=== PATIENT | female | born 1990 | race Caucasian/White ===

== ENCOUNTER 2018-05-31 01:03 | Emergency (ER) | payer SELFPAY ==
--- NOTE | 2018-05-31 01:10 | PDOC ---
History of Present Illness - General Chief Complaint: Eye Problem Stated Complaint: BLOOD FROM RIGHT EYELID Time Seen by Provider: 05/31/18 01:06 History Source: Patient Exam Limitations: No Limitations - History of Present Illness Initial Comments: 05/31/18 01:06 This is a 28-year-old female who comes in complaining of what appears to be a probable infected sty of the lower eyelid area on the right. Patient was doing a lot soaks when it popped and there was some blood by the type patient got here in the urine. And there was no other complaints. Patient has an appointment with an eye doctor in the morning. Allergies: as per nursing notes Past Medical History: none Social history: Lives with family. No smoking. No alcohol. No illicit drugs. Surgical history: None General: No fevers or chills, no weakness, no weight loss HEENT: No change in vision. No sore throat,. No ear pain, right eye with sty CardioVascular: no chest discomfort. No shortness of breath Respiratory:No cough, or wheezing. Gastrointestinal: no nausea, vomiting, diarrhea or constipation, No rectal bleeding Genitourinary: No dysuria, hematuria, or frequency Musculoskeletal: No joint or muscle pain or swelling Neurologic: No headache, vertigo, dizziness or loss of consciousness Psychiatric: nor depression Skin: No rashes or easy bruising Endocrine: no increased thirst or abnormal weight change Allergic: no skin or latex allergy All other systems reviewed and normal GENERAL: The patient is awake, alert, and fully oriented, in no acute distress. HEAD: Normal with no signs of trauma. EYES: Pupils equal, round and reactive to light, extraocular movements intact, sclera anicteric, conjunctiva clear. There is what appears to be a probable permanence of a stye so small amount of dried blood. There is no active bleeding at this time. EXTREMITIES:atraumatic, Normal range of motion, no edema. NEUROLOGICAL: Normal speech, normal gait. PSYCH: Normal mood, normal affect. SKIN: Warm, Dry, normal turgor, no rashes or lesions noted. Assessment and plan: This is a 28-year-old female with a stye in the right lower eyelid area that popped and there was some bleeding. Patient became concerned because bleeding came in for evaluation. Patient was reassured that this is not unusual and that she should keep her appointment in the morning with her literacy specialist. Past History - Past Medical History Allergies/Adverse Reactions: Allergies Allergy/AdvReac Type Severity Reaction Status Date / Time No Known Allergies Allergy Verified 05/31/18 01:04 Home Medications: Ambulatory Orders Alprazolam [Xanax] 0.25 mg PO DAILY 05/26/14 Cyclobenzaprine HCl [Flexeril] 5 mg PO TID PRN #10 tablet 05/26/14 Lurasidone HCl [Latuda] 1 tab PO DAILY 05/26/14 Naproxen [Naprosyn -] 500 mg PO BID PRN #40 tablet 05/26/14 Psychiatric Problems: Yes - Immunization History Immunization Up to Date: Yes - Suicide/Smoking/Psychosocial Hx Smoking History: Former smoker Have you smoked in the past 12 months: No Number of Cigarettes Smoked Daily: 0 Cigars Per Day: 0 'Breaking Loose' booklet given: 07/22/13 Hx Alcohol Use: Yes (OCCAS.) Substance Use Type: Marijuana *DC/Admit/Observation/Transfer Diagnosis at time of Disposition: Hordeolum externum right lower eyelid - Discharge Dispostion Disposition: HOME Condition at time of disposition: Improved - Referrals - Patient Instructions Additional Instructions: Do not do anything more to the area tonight go home and get some sleep. Return to the emergency department immediately with ANY new, persistent or worsening symptoms. Continue any medications as previously prescribed by your physician. Keep your appointment with your doctor in the morning Thank you for coming to the Emergency Department today for your care. It was a pleasure to see you today. Please note that your evaluation is INCOMPLETE until you follow-up with your doctor. - Post Discharge Activity
[2018-05-31 01:20] VITALS: TEMP 98.6; BMI 19.5
[2018-05-31 01:31] VITALS: BP 117/76; PULSE 99
== END 2018-05-31 01:31 | disposition home or self-care (01) ==
LOC: FER 01:03
DX: H00.012 Hordeolum externum right lower eyelid (principal); Z87.891 Personal history of nicotine dependence; F99 Mental disorder, not otherwise specified
CPT/HCPCS: 99281-25

== ENCOUNTER 2018-07-05 17:00 | Emergency (ER) | payer OTHER, BC ==
[2018-07-05 18:09] VITALS: BP 124/98; PULSE 98; TEMP 98; BMI 19.2
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
== END 2018-07-05 18:12 | disposition home or self-care (01) ==
LOC: FER 17:00
DX: M79.604 Pain in right leg (principal); Z87.891 Personal history of nicotine dependence; J45.909 Unspecified asthma, uncomplicated; F99 Mental disorder, not otherwise specified; F41.8 Other specified anxiety disorders; F50.9 Eating disorder, unspecified
CPT/HCPCS: 99282-25

== ENCOUNTER 2018-11-15 01:21 | Emergency (ER) | payer OTHER, BC ==
[2018-11-15 01:38] VITALS: BP 117/81; PULSE 98; TEMP 98.1; BMI 18.3
--- NOTE | 2018-11-15 01:48 | PDOC ---
History of Present Illness - General Chief Complaint: Allergic Reaction Stated Complaint: ALLERGIC REACTION Time Seen by Provider: 11/15/18 01:35 History Source: Patient Exam Limitations: No Limitations - History of Present Illness Initial Comments: 11/15/18 01:41 This is a 28-year-old female who comes in complaining she couldn't she's having an ALLERGIC reaction. Patient also does appear to be anxious very anxious and is complaining of some palpitations and shaking. Patient sustained a mosquito bite at her work that was bothering her and then had her hair done and think she had an ALLERGIC reaction to the bleach that they use in her hair. Patient took Benadryl 2 and began to feel panicky so came in for evaluation. Here in the emergency room patient does appear to be anxious but is otherwise without complaints. Allergies: as per nursing notes Past Medical History: none Social history: Lives with family. No smoking. No alcohol. No illicit drugs. Surgical history: None General: No fevers or chills, no weakness, no weight loss HEENT: No change in vision. No sore throat,. No ear pain CardioVascular: no chest discomfort. No shortness of breath Respiratory:No cough, or wheezing. Gastrointestinal: no nausea, vomiting, diarrhea or constipation, No rectal bleeding Genitourinary: No dysuria, hematuria, or frequency Musculoskeletal: No joint or muscle pain or swelling Neurologic: No headache, vertigo, dizziness or loss of consciousness Psychiatric: nor depression Skin: No rashes or easy bruising Endocrine: no increased thirst or abnormal weight change Allergic: ALLERGIC reaction as per history of present illness All other systems reviewed and normal GENERAL: The patient is awake, alert, and fully oriented, in no acute distress. HEAD: Normal with no signs of trauma. There is some mild erythema of the area around the scalp and patient said that it is itching her. EYES: Pupils equal, round and reactive to light, extraocular movements intact, sclera anicteric, conjunctiva clear. EXTREMITIES:atraumatic, Normal range of motion, no edema. Left lower extremity posterior knee there is an area that does appear to be a mosquito bite it is red, however it is not hot swollen or infected appearing. NEUROLOGICAL: Normal speech, normal gait. PSYCH: Normal mood, normal affect. SKIN: Warm, Dry, normal turgor, no rashes or lesions noted. Assessment and plan: This is a 28-year-old female with a mild reaction to what probably was hair chemicals. The patient was reassured that there is no need to be concerned and I suggested that she stop the Benadryl as it can be making her feel more anxious. I suggested patient take Claritin or Cesia tomorrow morning. Patient discharged will follow-up with her primary care doctor Past History - Past Medical History Allergies/Adverse Reactions: Allergies Allergy/AdvReac Type Severity Reaction Status Date / Time No Known Allergies Allergy Verified 05/31/18 01:04 Home Medications: Ambulatory Orders Alprazolam [Xanax] 2 mg PO HS 07/05/18 Gabapentin [Neurontin] 300 mg PO DAILY 07/05/18 Lamictal PO BID 07/05/18 Norethindrone-E.estradiol-Iron [Lo Loestrin Fe 1-10 Tablet] 1 tab PO DAILY 07/05 Seroquel 300 mg PO HS 07/05/18 Wellbutrin - 300 mg PO DAILY 07/05/18 Valacyclovir HCl [Valtrex -] 1,000 mg PO DAILY 11/15/18 Asthma: Yes COPD: No Psychiatric Problems: Yes - Immunization History Immunization Up to Date: Yes - Psycho Social/Smoking Cessation Hx Smoking History: Unknown if ever smoked Have you smoked in the past 12 months: No Number of Cigarettes Smoked Daily: 0 Cigars Per Day: 0 Information on smoking cessation initiated: No 'Breaking Loose' booklet given: 07/22/13 Hx Alcohol Use: No Drug/Substance Use Hx: No Substance Use Type: Marijuana *Physical Exam - Vital Signs Last Vital Signs Temp Pulse Resp BP Pulse Ox 98.1 F 98 H 14 117/81 100 11/15/18 01:35 11/15/18 01:35 11/15/18 01:35 11/15/18 01:35 11/15/18 01:35 Discharge - Discharge Information Problems reviewed: Yes Clinical Impression/Diagnosis: Contact dermatitis Qualifiers: Contact dermatitis type: irritant Contact dermatitis trigger: cosmetics Qualified Code(s): L24.3 - Irritant contact dermatitis due to cosmetics Condition: Good Disposition: HOME - Admission No - Follow up/Referral Referrals: Davy Ferrara MD [Primary Care Provider] - - Patient Discharge Instructions Additional Instructions: Stop the Benadryl and replace it with either Claritin or Cesia in the morning. You can use some hydrocortisone cream on the itchy areas around her scalp and behind her knee. Return to the emergency department immediately with ANY new, persistent or worsening symptoms. Continue any medications as previously prescribed by your physician. You should follow up with your primary doctor as soon as possible regarding today's emergency department visit. . Please make sure your doctor reviews the results of your emergency evaluation. Thank you for coming to the Emergency Department today for your care. It was a pleasure to see you today. Please note that your evaluation is INCOMPLETE until you follow-up with your doctor. - Post Discharge Activity
== END 2018-11-15 02:00 | disposition home or self-care (01) ==
LOC: FER 01:21
DX: L24.3 Irritant contact dermatitis due to cosmetics (principal); J45.909 Unspecified asthma, uncomplicated; F99 Mental disorder, not otherwise specified
CPT/HCPCS: 99282-25

== ENCOUNTER 2020-09-30 16:54 | Emergency (ER) | payer OTHER ==
[2020-09-30 17:25] VITALS: BP 118/84; PULSE 85; TEMP 98.2; BMI 16.2
[2020-09-30] MEDS ORDERED: ONDANSETRON 4 MG/2 ML VIAL IVPUSH ONE (17:55)
[2020-09-30] MEDS ORDERED: PANTOPRAZOLE SODIUM 40 MG in SODIUM CHLORIDE 100 ML IVPB ONE (17:55)
[2020-09-30] MEDS ORDERED: SODIUM CHLORIDE 1,000 ML IV STA (17:55)
[2020-09-30] MEDS ORDERED: MAG HYDROX/AL HYDROX/SIMETH 30 ML UNIT-DOSE CUP PO ONE (17:55)
[2020-09-30] MEDS ORDERED: ONDANSETRON 4 MG/2 ML VIAL ONE (18:02)
[2020-09-30] MEDS ORDERED: MAG HYDROX/AL HYDROX/SIMETH 30 ML UNIT-DOSE CUP ONE (18:02)
[2020-09-30] MEDS ORDERED: PANTOPRAZOLE SODIUM 40 MG VIAL ONE (18:02)
[2020-09-30 18:44] LABS: HCG,QUALITATIVE URINE Negative
[2020-09-30 18:50] LABS: EOS % 3.3 % (0-4.5); HEMATOCRIT 39.6 % (32.4-45.2); HEMOGLOBIN 13.1 GM/dl (10.7-15.3); LYMPH % 41.3 % (8-40); MCH 30.5 pg (25.7-33.7); MEAN CELL VOLUME 92.4 fl (80-96); MONO % 5.3 % (3.8-10.2); NEUT % 49.1 % (42.8-82.8); PLATELET COUNT 342 10^3/uL (134-434); RBC 4.29 M/mm3 (3.60-5.2); RDW 11.5 % (11.6-15.6); WHITE BLOOD COUNT 4.6 K/mm3 (4.0-10.8)
[2020-09-30 19:29] LABS: ALBUMIN 4.5 g/dl (3.4-5.0); BILIRUBIN,TOTAL 0.6 mg/dl (0.2-1); CALCIUM 9.8 mg/dl (8.5-10); CREATININE 0.9 mg/dl (0.55-1.3); TOT PROT 7.2 g/dl (6.4-8.2)
[2020-09-30 20:40] LABS: HIV INTERPRETATION NEGATIVE (NEGATIVE)
== END 2020-09-30 21:43 | disposition home or self-care (01) ==
LOC: FER 16:54
PROC: 3E033GC Introduction of Other Therapeutic Substance into Peripheral Vein, Percutaneous Approach (ICD-10-PCS; principal; 2020-09-30)
PROC: 3E033GC Introduction of Other Therapeutic Substance into Peripheral Vein, Percutaneous Approach (ICD-10-PCS; 2020-09-30)
PROC: 3E0337Z Introduction of Electrolytic and Water Balance Substance into Peripheral Vein, Percutaneous Approach (ICD-10-PCS; 2020-09-30)
DX: B37.3 Candidiasis of vulva and vagina (principal); K29.00 Acute gastritis without bleeding
CPT/HCPCS: 36415; 71045-TC-FY; 80053; 81003; 83690; 84703; 85025; 86780; 87086; 87389; 87491; 87591; 99284-25

== ENCOUNTER 2023-07-24 17:46 | Emergency (ER) | payer OTHER ==
[2023-07-24 18:20] VITALS: BP 114/84; PULSE 87; RESP 20; TEMP 98.2; BMI 16.8
== END 2023-07-24 18:44 | disposition home or self-care (01) ==
LOC: FER 17:46
DX: L08.9 Local infection of the skin and subcutaneous tissue, unspecified (principal)
CPT/HCPCS: 99283-25

== ENCOUNTER 2024-04-18 20:30 | Emergency (ER) | payer OTHER ==
[2024-04-18 20:35] VITALS: BP 120/85; PULSE 76; RESP 16; TEMP 97.5; BMI 17.5
[2024-04-18 21:11] LABS: HEMATOCRIT 40.4 % (32.4-45.2); HEMOGLOBIN 14.3 G/dL (10.7-15.3); MCH 32.8 pg (25.7-33.7); MCHC 35.3 g/dl (32.0-36.0); MEAN CELL VOLUME 92.8 fl (80-96); MEAN PLT VOLUME 7.7 fl (7.5-11.1); PLATELET COUNT 251.6 10^3/uL (134-434); RBC 4.35 10^6/uL (3.60-5.2); RDW 12.4 % (11.6-15.6); WHITE BLOOD COUNT 4.4 10^3/uL (4.0-10.8)
[2024-04-18 21:35] LABS: ALBUMIN 4.8 g/dl (3.4-5.0); BILIRUBIN,TOTAL 0.7 mg/dl (0.2-1); CALCIUM 9.7 mg/dl (8.5-10.1); CREATININE 0.9 mg/dl (0.6-1.3); POTASSIUM 4.5 mmol/L (3.5-5.1)
[2024-04-18] MEDS ORDERED: DEXTROSE 50%-WATER 25 GM/50 ML DISP.SYRIN ONE (21:43)
[2024-04-18] MEDS: DEXTROSE 50%-WATER - 25 GM/50 ML VIAL IVPUSH ONE (21:46)
[2024-04-18] MEDS ORDERED: ACETAMINOPHEN INJECTION 100 ML ONE (21:55)
[2024-04-18] MEDS ORDERED: ONDANSETRON 4 MG/2 ML VIAL ONE (21:55)
[2024-04-18] MEDS: ONDANSETRON 4 MG/2 ML VIAL IVPUSH ONE (22:08)
[2024-04-18] MEDS: ACETAMINOPHEN 1000 MG/100 ML BAG IVPB ONE (22:08)
[2024-04-18] MEDS ORDERED: LORazepam 0.5 MG TABLET ONE (23:21)
[2024-04-18] MEDS: LORazepam 2 MG TABLET PO ONE (23:22)
== END 2024-04-18 23:24 | disposition home or self-care (01) ==
LOC: FER 20:30
PROC: 3E033NZ Introduction of Analgesics, Hypnotics, Sedatives into Peripheral Vein, Percutaneous Approach (ICD-10-PCS; principal; 2024-04-18)
PROC: 3E033GC Introduction of Other Therapeutic Substance into Peripheral Vein, Percutaneous Approach (ICD-10-PCS; 2024-04-18)
DX: R11.2 Nausea with vomiting, unspecified (principal); M79.10 Myalgia, unspecified site; W07.XXXA Fall from chair, initial encounter
CPT/HCPCS: 36415; 80053; 82962; 84703; 85027; 99284-25; J0131